=== PATIENT | female | born 1960 | race Caucasian/White ===

== ENCOUNTER 2016-05-06 17:48 | Emergency (ER) | payer OTHER ==
[~2016-05-06] VITALS: Ht 152.4 cm; Wt 99.3 kg
[~2016-05-06 17:48] MED LIST: AMLO-147 PO; BENA40TA41 PO; FLUT9.9S NASAL; IBUP-1542 PO; PSEU30TA38 PO; SIMV40TA2 PO; SITA1TAB5 PO
[2016-05-06 18:09] VITALS: Ht 152.4 cm; Wt 99.3 kg
[2016-05-06] MEDS ORDERED: KETOROLAC 30 MG INJ IM STA (20:20)
[2016-05-06] MEDS ORDERED: DIAZEPAM 2 MG TAB PO ONE (20:30)
[2016-05-06] MEDS ORDERED: TRAM50TA2 PO (21:36)
--- NOTE | 2016-05-06 21:45 | ERD ---
ER Documentation Chief Complaint Date/Time DATE: 05/06/16 TIME: 21:40 Chief Complaint Pt with CASH X 2 weeks. HPI This is a 56-year-old female that presents to the ER with multiple complaints. Over the last 2 weeks patient has had a headache which radiates down into her neck, shoulders, upper back, middle back and lower back. Patient states the pain is throbbing in quality it is also achy. Patient has tried ibuprofen for the pain which seems to help however the pain always comes back. Pain is read as 8 out of 10. Patient denies any falls or trauma. Patient does admit to having anxiety. She does feel stressed out lately. Patient denies any vision changes. She denies any fevers or chills. Denies any weaknesses. ROS 12 point review of systems was done, all negative except per HPI. Medications Home Meds Active Scripts Tramadol HCl (Tramadol HCl) 50 Mg Tablet, 50 MG PO Q4 Y for PAIN, #20 TAB Prov:GENO ARAMBULA 05/06/16 Pseudoephedrine Hcl* (Pseudoephedrine Hcl*) 30 Mg Tablet, 30 MG PO Q6 Y for CONGESTION, #30 TAB Prov:AMPARO LUCIO PA-C 12/09/15 Fluticasone Propionate (Flonase Allergy Relief) 9.9 Ml [place].susp, 1 SPRAY NASAL DAILY, #1 BOTTLE TO EACH NOSTRIL Prov:AMPARO LUCIO PA-C 12/09/15 Ibuprofen* (Motrin*) 600 Mg Tab, 600 MG PO Q6, #30 TAB Prov:AMPARO LUCIO PA-C 12/09/15 Reported Medications Benazepril Hcl* (Benazepril Hcl*) 40 Mg Tablet, 40 MG PO DAILY, #30 TAB 12/01/15 Sitagliptin Phos/Metformin HCl (Janumet 50-1,000 mg Tablet) 1 Each Tablet, 1 EACH PO BID WITH MEALS, TAB 11/15/15 Simvastatin* (Zocor*) 40 Mg Tablet, 40 MG PO QHS, #30 TAB 11/15/15 Amlodipine Besylate* (Amlodipine Besylate*) 10 Mg Tablet, 10 MG PO DAILY, #30 TAB 11/15/15 Allergies Allergies: Coded Allergies: No Known Allergy (Verified , 12/06/15) PMhx/Soc History of Surgery: Yes (hysterectomy, hemorrhoids) Anesthesia Reaction: No Hx Neurological Disorder: No Hx Respiratory Disorders: No Hx Cardiac Disorders: Yes (HTN, HYPERLIPDEMIA) Hx Psychiatric Problems: No Hx Miscellaneous Medical Probl: Yes (DM, GERD, GASTRITIS, MORBID OBESITY) Hx Alcohol Use: No Hx Substance Use: No Hx Tobacco Use: No Physical Exam Vitals Vital Signs Date Time Temp Pulse Resp B/P Pulse Ox O2 Delivery O2 Flow Rate FiO2 05/06/16 18:09 98.2 104 18 172/87 97 Physical Exam GENERAL: The patient is well developed and appropriate for usual state of health , in no apparent distress. HEENT: Atraumatic. Conjunctivae are pink. Pupils equal, round, and reactive to light. Extraocular muscles are grossly intact. Bilateral tympanic membranes are clear with no evidence of erythema, bulging or perforation. No sinus tenderness. NECK: C-spine is soft and supple. There is no cervical lymphadenopathy. Tenderness to palpation along trapezius muscle CHEST: Clear to auscultation bilaterally. There are no rales, wheezes or rhonchi. HEART: Regular rate and rhythm. No murmurs, clicks, rubs or gallops. BACK: Tender to palpation along paraspinal muscles throughout her entire back. No vertebral point tenderness. EXTREMITIES: Equal pulses bilaterally. There is no peripheral clubbing, cyanosis or edema. No focal swelling or erythema. Full range of motion. Grossly neurovascularly intact. NEURO: Alert and oriented. Cranial nerves II through XII are intact. Motor strength in all 4 extremities with 5/5 strength. Sensation grossly intact. Normal speech and gait. Negative [place]. +2 DTRs. SKIN: There is no apparent rash or petechia. The skin is warm and dry. Results 24 hrs Current Medications Medications (Trade) Dose Ordered Sig/Nila Route PRN Reason Start Time Stop Time Status Last Admin Dose Admin Ketorolac Tromethamine (Toradol) 30 mg ONCE STAT IM 05/06/16 20:20 05/06/16 20:21 DC 05/06/16 21:15 Diazepam (Valium) 2 mg ONCE ONCE PO 05/06/16 20:30 05/06/16 20:31 DC 05/06/16 21:21 Procedures/MDM Differential Diagnosis includes but is not limited to; tension headache, migraine headache, cluster headache, sinus headache, nonspecific febrile headache, trigeminal neurologia, subdural hematoma, subarachnoid bleeding, meningitis, encephalitis. Patient is neurologically intact with no focal neurological deficits. Patient was treated with Toradol here in the ER, patient felt better. At this time I do not feel patient needs any blood work or imaging of the patient's neurological exam is completely normal. Patient is experiencing pain throughout her neck shoulders and back. Likely muscular in nature. Patient is afebrile and well-appearing. Patient will be sent home with tramadol. She is to follow-up with her primary care doctor within 1-2 days. My medical decision making was shared with the patient she understands and agrees with plan. Departure Diagnosis: Primary Impression: Headache Condition: Stable Patient Instructions: Self-Care for Headaches Referrals: ANA MORENO DO (PCP) Additional Instructions: Llame al doctor MAANA y [facility] PARA DENTRO DE 1-2 HATHAWAY.Dgale a la secretaria que nosotros le instruimos hacer esta soham.Avise o llame si pitts condicin se empeora antes de la soham. Regresa aqui si peor o no mejor. GENO ARAMBULA May 06, 2016 21:45
[2016-05-06 21:53] VITALS: BP 148/86; PULSE 101; RESP 16
== END 2016-05-06 21:53 | disposition home or self-care (01) ==
LOC: FTE 17:48
DX: R51 Headache (principal); I10 Essential (primary) hypertension; E11.9 Type 2 diabetes mellitus without complications; Z79.84 Long term (current) use of oral hypoglycemic drugs
CPT/HCPCS: 96372; J1885; Z7502; Z7610

== ENCOUNTER 2016-05-23 16:29 | Emergency (ER) | payer OTHER ==
[~2016-05-23] VITALS: Wt 100.0 kg
[~2016-05-23 16:29] MED LIST changes: +TRAM50TA2 PO
[2016-05-23] MEDS ORDERED: ACETAMINOPHEN 500 MG TAB PO STA (19:15)
[2016-05-23] MEDS ORDERED: CEFTRIAXONE 1 GM/50 ML (PMX) 50 ML IVPB ONE (19:30)
[2016-05-23] MEDS ORDERED: SOD CHLORIDE 0.9% 1,000 ML IV ONE (19:30)
[2016-05-23 19:52] LABS: ADD SCAN DIFF NO
[2016-05-23 19:54] LABS: BASOPHILS % 0.2 % (0.0-2.0); EOSINOPHILS # 0.2 10^3/ul (0.0-0.5); EOSINOPHILS % 1.5 % (0.0-7.0); HEMATOCRIT 35.5 % (37.0-47.0); HEMOGLOBIN 11.9 g/dl (12.0-16.0); LYMPHOCYTES # 2.7 10^3/ul (0.8-2.9); LYMPHOCYTES % 18.2 % (15.0-51.0); MEAN CORPUSCULAR HEMOGLOBIN 27.7 pg (29.0-33.0); MEAN CORPUSCULAR HGB CONC 33.5 g/dl (32.0-37.0); MEAN CORPUSCULAR VOLUME 82.8 fl (82.0-101.0); MEAN PLATELET VOLUME 9.9 fl (7.4-10.4); MONOCYTE # 0.8 10^3/ul (0.3-0.9); MONOCYTES % 5.4 % (0.0-11.0); NEUTROPHILS % 74.3 % (39.0-77.0); PLATELET COUNT 386 10^3/UL (140-415); RED BLOOD COUNT 4.29 10^6/ul (4.20-5.40); RED CELL DISTRIBUTION WIDTH 13.8 % (11.5-14.5); WHITE BLOOD COUNT 14.9 10^3/ul (4.8-10.8)
[2016-05-23 20:05] LABS: POTASSIUM 4.3 mmol/L (3.5-5.1)
[2016-05-23 20:07] LABS: CREATININE 0.56 mg/dl (0.44-1.00)
[2016-05-23 20:08] LABS: ALBUMIN/GLOBULIN RATIO 0.93; CALCIUM 9.1 mg/dl (8.4-10.2); TOTAL PROTEIN 8.3 g/dl (6.1-8.1)
[2016-05-23 20:15] LABS: ADD UMIC YES; URINE BILIRUBIN (Dip) NEGATIVE (NEGATIVE); URINE BLOOD (Dip) TRACE (NEGATIVE); URINE COLOR LT. YELLOW (YELLOW); URINE GLUCOSE (Dip) >=1000 % (NEGATIVE); URINE KETONES (Dip) NEGATIVE (NEGATIVE); URINE LEUKOCYTE ESTERASE (Dip) 1+ (NEGATIVE); URINE NITRITE (Dip) POSITIVE (NEGATIVE); URINE TOTAL PROTEIN (Dip) NEGATIVE (NEGATIVE); URINE UROBILINOGEN (Dip) 0.2 E.U./dL (0.1-1.0)
[2016-05-23 20:44] LABS: BACTERIA,URINE MANY; SQUAMOUS EPITHELIAL CELL,UR FEW; URINE RBCS 0-2 /HPF (0)
[2016-05-23] MEDS ORDERED: BACTDS PO (21:35)
[2016-05-23] MEDS ORDERED: TYL500 PO (21:36)
[2016-05-23] MEDS ORDERED: CEPH-443 PO (21:36)
--- NOTE | 2016-05-23 21:50 | ERD ---
ER Documentation Chief Complaint Date/Time DATE: 05/23/16 TIME: 21:41 Chief Complaint FEVER AND BODY ACHE FOR THE PAST 4 DAYS. NO COUGH OR URI , NO DYSURIA HPI This is a 56-year-old female that presents to the ER with multiple abscesses on her back and buttocks. Patient states she has had fevers for the last 2 days and she has been taking ibuprofen which helps it go away. Patient denies any nausea vomiting or diarrhea. She denies any urinary frequency or dysuria. Patient has had these recurrent abscesses over the last 2 years. Patient began to feel pain to the back and the Botox 4 days ago. He states that usually they get a soft, open and discharge is expressed. However this has not happened. ROS 12 point review of systems was done, all negative except per HPI. Medications Home Meds Active Scripts Acetaminophen* (Tylenol*) 500 Mg Tab, 1000 MG PO Q8H Y for PAIN AND OR ELEVATED TEMP for 3 Days, TAB Prov:GENO ARAMBULA 05/23/16 Cephalexin* (Keflex*) 500 Mg Capsule, 500 MG PO QID for 7 Days, CAP Prov:GENO ARAMBULA 05/23/16 Sulfamethoxazole-Trimethoprim* (Bactrim* DS) 800-160 Mg Tab, 1 TAB PO BID for 7 Days, TAB Prov:GENO ARAMBULA 05/23/16 Tramadol HCl (Tramadol HCl) 50 Mg Tablet, 50 MG PO Q4 Y for PAIN, #20 TAB Prov:GENO ARAMBULA 05/06/16 Pseudoephedrine Hcl* (Pseudoephedrine Hcl*) 30 Mg Tablet, 30 MG PO Q6 Y for CONGESTION, #30 TAB Prov:AMPARO LUCIO PA-C 12/09/15 Fluticasone Propionate (Flonase Allergy Relief) 9.9 Ml [place].susp, 1 SPRAY NASAL DAILY, #1 BOTTLE TO EACH NOSTRIL Prov:AMPARO LUCIO PA-C 12/09/15 Ibuprofen* (Motrin*) 600 Mg Tab, 600 MG PO Q6, #30 TAB Prov:AMPARO LUCIO PA-C 12/09/15 Reported Medications Benazepril Hcl* (Benazepril Hcl*) 40 Mg Tablet, 40 MG PO DAILY, #30 TAB 12/01/15 Sitagliptin Phos/Metformin HCl (Janumet 50-1,000 mg Tablet) 1 Each Tablet, 1 EACH PO BID WITH MEALS, TAB 11/15/15 Simvastatin* (Zocor*) 40 Mg Tablet, 40 MG PO QHS, #30 TAB 11/15/15 Amlodipine Besylate* (Amlodipine Besylate*) 10 Mg Tablet, 10 MG PO DAILY, #30 TAB 11/15/15 Allergies Allergies: Coded Allergies: No Known Allergy (Verified , 12/06/15) PMhx/Soc History of Surgery: Yes (hysterectomy, hemorrhoids) Anesthesia Reaction: No Hx Neurological Disorder: No Hx Respiratory Disorders: No Hx Cardiac Disorders: Yes (HTN, HYPERLIPDEMIA) Hx Psychiatric Problems: No Hx Miscellaneous Medical Probl: Yes (DM, GERD, GASTRITIS, MORBID OBESITY, anxiety) Hx Alcohol Use: No Hx Substance Use: No Hx Tobacco Use: No Smoking Status: Never smoker Physical Exam Vitals Vital Signs Date Time Temp Pulse Resp B/P Pulse Ox O2 Delivery O2 Flow Rate FiO2 05/23/16 16:32 100.1 112 21 144/89 98 Physical Exam GENERAL: The patient is well developed and appropriate for usual state of health , in no apparent distress. HEENT: Atraumatic. CHEST: Clear to auscultation bilaterally. There are no rales, wheezes or rhonchi. HEART: Regular rate and rhythm. No murmurs, clicks, rubs or gallops. NEURO: Alert and oriented. SKIN: multiples abscess all over body. there is a 3cm by 4cm area of induration on the left buttock. 2cm*3cm abscess on the left lower back that is indurated. 2cm*3cm abscess on right buttock that is indurated. Result Diagram: 05/23/16194405/23/161944 Results 24 hrs Laboratory Tests Test 05/23/16 19:45 Alanine Aminotransferase (ALT/SGPT) 18IU/L Albumin 4.0g/dl Albumin/Globulin Ratio 0.93 Alkaline Phosphatase 202IU/L Anion Gap 19 Aspartate Amino Transf (AST/SGOT) 21IU/L Basophils # 0.010^3/ul Basophils % 0.2% Blood Urea Nitrogen 15mg/dl Calcium Level 9.1mg/dl Carbon Dioxide Level 25mmol/L Chloride Level 94mmol/L Creatinine 0.56mg/dl Direct Bilirubin 0.00mg/dl Eosinophils # 0.210^3/ul Eosinophils % 1.5% Globulin 4.30g/dl Glucose Level 366mg/dl Hematocrit 35.5% Hemoglobin 11.9g/dl Indirect Bilirubin 0.0mg/dl Lymphocytes # 2.710^3/ul Lymphocytes % 18.2% Mean Corpuscular Hemoglobin 27.7pg Mean Corpuscular Hemoglobin Concent 33.5g/dl Mean Corpuscular Volume 82.8fl Mean Platelet Volume 9.9fl Monocytes # 0.810^3/ul Monocytes % 5.4% Neutrophils # 11.010^3/ul Neutrophils % 74.3% Nucleated Red Blood Cells # 0.010^3/ul Nucleated Red Blood Cells % 0.0/100WBC Platelet Count 50923^3/UL Potassium Level 4.3mmol/L Red Blood Count 4.2910^6/ul Red Cell Distribution Width 13.8% Sodium Level 134mmol/L Total Bilirubin 0.0mg/dl Total Protein 8.3g/dl Urine Bacteria MANY Urine Bilirubin NEGATIVE Urine Clarity SLIGHTLY CLOUDY Urine Color LT. YELLOW Urine Glucose >=1000% Urine Hemoglobin TRACE Urine Ketones NEGATIVE Urine Leukocyte Esterase 1+ Urine Microscopic RBC 0-2/HPF Urine Microscopic WBC 5-10/HPF Urine Nitrite POSITIVE Urine Specific [place] 1.025 Urine Squamous Epithelial Cells FEW Urine Total Protein NEGATIVE Urine Urobilinogen 0.2 E.U./dL Urine pH 5.5 White Blood Count 14.910^3/ul Current Medications Medications (Trade) Dose Ordered Sig/Nila Route PRN Reason Start Time Stop Time Status Last Admin Dose Admin Ceftriaxone Sodium 50 ml @ 100 mls/hr ONCE ONCE IVPB 05/23/16 19:30 05/23/16 19:59 DC 05/23/16 19:41 Sodium Chloride (NS) 1,000 ml @ 1,000 mls/hr Q1H ONCE IV 05/23/16 19:30 05/23/16 20:29 DC 05/23/16 19:41 Acetaminophen (Tylenol Tab) 1,000 mg ONCE STAT PO 05/23/16 19:15 05/23/16 19:18 DC 05/23/16 19:41 Procedures/MDM This is a 56 y/o female that presents to the ER for multiple abscesses and fevers. Patient did have a fever here in the ER which is controlled. She was also given fluids. Patient was given IV Rocephin without any complications. I discussed this case with Dr. Jewell, and he agrees with my medical decision making. Patient does have a slight elevation in her white blood cells however this is expected as she has multiple abscesses. And is well-appearing and she is nontoxic. Patient will be sent home with Bactrim and with Keflex. She is to follow-up with her primary care doctor within 1-2 days return to ER sooner if symptoms worsen. My medical decision making was shared with the patient she understands and agrees with plan. Departure Diagnosis: Primary Impression: Abscess Condition: Stable Patient Instructions: Abscess, Antiobiotic Treatment Only Referrals: ANA MORENO DO (PCP) Additional Instructions: Llame al doctor MAANA y [facility] PARA DENTRO DE 1-2 HATHAWAY.Dgale a la secretaria que nosotros le instruimos hacer esta soham.Avise o llame si pitts condicin se empeora antes de la soham. Regresa aqui si peor o no mejor. GENO ARAMBULA May 23, 2016 21:50
[2016-05-23 21:52] VITALS: TEMP 97.9
== END 2016-05-23 21:53 | disposition home or self-care (01) ==
LOC: FTE 16:29
DX: L02.31 Cutaneous abscess of buttock (principal); L02.212 Cutaneous abscess of back [any part, except buttock and flank]; I10 Essential (primary) hypertension; E11.9 Type 2 diabetes mellitus without complications; E66.01 Morbid (severe) obesity due to excess calories; Z79.84 Long term (current) use of oral hypoglycemic drugs
CPT/HCPCS: 80053; 81001; 85025; 96374; J0696; J7030; Z7502; Z7610; 81003

== ENCOUNTER 2016-05-25 03:19 | Emergency (ER) | payer OTHER ==
[~2016-05-25] VITALS: Ht 152.4 cm; Wt 100.0 kg
[~2016-05-25 03:19] MED LIST changes: +BACTDS PO; +CEPH-443 PO; +TYL500 PO
[2016-05-25 04:26] VITALS: Ht 152.4 cm; Wt 100.0 kg
[2016-05-25] MEDS ORDERED: CEFTRIAXONE 1 GM INJ IM STA (07:19)
--- NOTE | 2016-05-25 08:05 | ERD ---
ER Documentation Chief Complaint Date/Time DATE: 05/25/16 TIME: 08:02 Chief Complaint Abscess in the buttocks Bilateral HPI Is a 56-year-old with history of diabetes type 2 female presenting to the emergency department complaining of multiple abscesses throughout body for the past 2 years. Patient was seen here 2 days ago in which she got blood work, received Keflex and Bactrim and received Rocephin in the ED. Patient never followed up with her primary care physician. She denies any fevers. She states that it has remained constant and 1 of the abscesses have got a little bigger. She states she is compliant with her medication ROS All systems reviewed and are negative except as per history of present illness. Medications Home Meds Active Scripts Acetaminophen* (Tylenol*) 500 Mg Tab, 1000 MG PO Q8H Y for PAIN AND OR ELEVATED TEMP for 3 Days, TAB Prov:GENO ARAMUBLA 05/23/16 Cephalexin* (Keflex*) 500 Mg Capsule, 500 MG PO QID for 7 Days, CAP Prov:GENO ARAMBULA 05/23/16 Sulfamethoxazole-Trimethoprim* (Bactrim* DS) 800-160 Mg Tab, 1 TAB PO BID for 7 Days, TAB Prov:GENO ARAMBULA 05/23/16 Tramadol HCl (Tramadol HCl) 50 Mg Tablet, 50 MG PO Q4 Y for PAIN, #20 TAB Prov:GENO ARAMBULA 05/06/16 Pseudoephedrine Hcl* (Pseudoephedrine Hcl*) 30 Mg Tablet, 30 MG PO Q6 Y for CONGESTION, #30 TAB Prov:AMPARO LUCIO PA-C 12/09/15 Fluticasone Propionate (Flonase Allergy Relief) 9.9 Ml [place].susp, 1 SPRAY NASAL DAILY, #1 BOTTLE TO EACH NOSTRIL Prov:AMPARO LUCIO PA-C 12/09/15 Ibuprofen* (Motrin*) 600 Mg Tab, 600 MG PO Q6, #30 TAB Prov:AMPARO LUCIO PA-C 12/09/15 Reported Medications Benazepril Hcl* (Benazepril Hcl*) 40 Mg Tablet, 40 MG PO DAILY, #30 TAB 12/01/15 Sitagliptin Phos/Metformin HCl (Janumet 50-1,000 mg Tablet) 1 Each Tablet, 1 EACH PO BID WITH MEALS, TAB 11/15/15 Simvastatin* (Zocor*) 40 Mg Tablet, 40 MG PO QHS, #30 TAB 11/15/15 Amlodipine Besylate* (Amlodipine Besylate*) 10 Mg Tablet, 10 MG PO DAILY, #30 TAB 11/15/15 Allergies Allergies: Coded Allergies: No Known Allergy (Verified , 12/06/15) PMhx/Soc History of Surgery: Yes (hysterectomy, hemorrhoids) Anesthesia Reaction: No Hx Neurological Disorder: No Hx Respiratory Disorders: No Hx Cardiac Disorders: Yes (HTN, HYPERLIPDEMIA) Hx Psychiatric Problems: No Hx Miscellaneous Medical Probl: Yes (DM, GERD, GASTRITIS, MORBID OBESITY, anxiety) Hx Alcohol Use: No Hx Substance Use: No Hx Tobacco Use: No Physical Exam Vitals Vital Signs Date Time Temp Pulse Resp B/P Pulse Ox O2 Delivery O2 Flow Rate FiO2 05/25/16 04:26 99.3 103 20 133/83 99 Physical Exam General: WD/WN, in no apparent distress, non-toxic appearing HENT: NC/AT Eyes: Conjunctiva normal Neck: Supple Pulm: Clear to auscultation, normal labored breathing; no wheezing/rales/ rhonchi heard CV: Good capillary refill GI: Non-distended, no guarding Back: No masses Ext: No clubbing, cyanosis, or edema Neuro: Moves on all fours Skin: Multiple indurated patches throughout body, no evidence of drainage Normal turgor, color, and temperature. No ulcerations or rashes noted. Psych: Normal mood Results 24 hrs Current Medications Medications (Trade) Dose Ordered Sig/Nila Route PRN Reason Start Time Stop Time Status Last Admin Dose Admin Ceftriaxone Sodium (Rocephin) 1 gm ONCE STAT IM 05/25/16 07:19 05/25/16 07:20 DC Procedures/MDM This is a 56-year-old female with a history of diabetes type 2 presenting with multiple abscesses throughout body for the past 2 years, patient was seen here couple days ago and received Rocephin in the ED and Bactrim for outpatient. Patient states that she is compliant with her medications. On examination I have examined her, there was no evidence of lymphangitis, osteomyelitis or bacteremia. I went to consult my supervising physician regarding this patient and when I return to talk to the patient she had eloped. Patient was stable throughout my encounter with her Departure Diagnosis: Primary Impression: Encounter for wound re-check Condition: REGGIE Thompson PA-C May 25, 2016 08:05
== END 2016-05-25 08:27 | disposition left against medical advice (07) ==
LOC: FTE 03:19
DX: Z48.00 Encounter for change or removal of nonsurgical wound dressing (principal); I10 Essential (primary) hypertension; E11.9 Type 2 diabetes mellitus without complications; E66.01 Morbid (severe) obesity due to excess calories; Z79.84 Long term (current) use of oral hypoglycemic drugs; Z68.41 Body mass index [BMI] 40.0-44.9, adult
CPT/HCPCS: 99281

== ENCOUNTER 2016-08-20 01:46 | Emergency (ER) | payer OTHER ==
[~2016-08-20] VITALS: Ht 152.4 cm; Wt 101.5 kg
[2016-08-20 01:52] VITALS: Ht 152.4 cm; Wt 101.5 kg
[2016-08-20] MEDS ORDERED: SOD CHLORIDE 0.9% 500 ML IV STA (02:25)
[2016-08-20 03:40] LABS: ADD SCAN DIFF NO
[2016-08-20 04:04] LABS: BASOPHILS % 0.3 % (0.0-2.0); EOSINOPHILS # 0.2 10^3/ul (0.0-0.5); EOSINOPHILS % 2.5 % (0.0-7.0); HEMATOCRIT 36.3 % (37.0-47.0); HEMOGLOBIN 12.1 g/dl (12.0-16.0); LYMPHOCYTES # 1.9 10^3/ul (0.8-2.9); LYMPHOCYTES % 19.7 % (15.0-51.0); MEAN CORPUSCULAR HEMOGLOBIN 28.2 pg (29.0-33.0); MEAN CORPUSCULAR HGB CONC 33.3 g/dl (32.0-37.0); MEAN CORPUSCULAR VOLUME 84.6 fl (82.0-101.0); MEAN PLATELET VOLUME 9.8 fl (7.4-10.4); MONOCYTE # 0.6 10^3/ul (0.3-0.9); MONOCYTES % 5.7 % (0.0-11.0); NEUTROPHILS % 71.2 % (39.0-77.0); PLATELET COUNT 361 10^3/UL (140-415); RED BLOOD COUNT 4.29 10^6/ul (4.20-5.40); WHITE BLOOD COUNT 9.8 10^3/ul (4.8-10.8)
[2016-08-20 04:06] LABS: ANION GAP 12 (8-16); BLOOD UREA NITROGEN 14 mg/dl (7-20); CALCIUM 9.1 mg/dl (8.4-10.2); CARBON DIOXIDE 28 mmol/L (21-31); CHLORIDE 101 mmol/L (97-110); CREATININE 0.42 mg/dl (0.44-1.00); GLUCOSE 262 mg/dl (70-220); POTASSIUM 3.9 mmol/L (3.5-5.1); SODIUM 137 mmol/L (135-144)
[2016-08-20 04:21] LABS: TROPONIN-I < 0.012 ng/ml (0.00-0.12)
--- NOTE | 2016-08-20 05:00 | RADRPT ---
PROCEDURE: CHEST - 1 VIEW CLINICAL INDICATION: 56-year-old female with syncope. TECHNIQUE: A single frontal AP upright portable view of the chest was performed. The images were reviewed on a PACS workstation. COMPARISON: None. FINDINGS: The cardiomediastinal silhouette is within normal limits. The thoracic aortic arch is calcified. T here is no evidence for an infiltrate. There is no evidence for congestive heart failure. There is no evidence for pneumothorax. The osseous structures are intact. IMPRESSION: 1. Calcified thoracic aortic arch. 2. No evidence for active cardiopulmonary disease. .Darrion Gaviria MD, MD Date Time Electronically viewed and signed by .Darrion Gaviria MD, on 08/20/2016 05:00 .Radha/
--- NOTE | 2016-08-20 06:00 | ERD ---
ER Documentation Chief Complaint Date/Time DATE: 08/20/16 TIME: 05:59 Chief Complaint FEVER. BURNING RASH ON LT LOWER FLANK R/O SHINGLES HPI 56 year female burning rash on left lower flank. She has been there for 2-3 days. No nausea vomiting or chills. No other current complaints. ROS All systems reviewed and are negative except as per history of present illness. Medications Home Meds Active Scripts Acetaminophen* (Tylenol*) 500 Mg Tab, 1000 MG PO Q8H Y for PAIN AND OR ELEVATED TEMP for 3 Days, TAB Prov:GENO ARAMBULA 05/23/16 Cephalexin* (Keflex*) 500 Mg Capsule, 500 MG PO QID for 7 Days, CAP Prov:GENO ARAMBULA 05/23/16 Sulfamethoxazole-Trimethoprim* (Bactrim* DS) 800-160 Mg Tab, 1 TAB PO BID for 7 Days, TAB Prov:GENO ARAMBULA 05/23/16 Tramadol HCl (Tramadol HCl) 50 Mg Tablet, 50 MG PO Q4 Y for PAIN, #20 TAB Prov:GENO ARAMBULA 05/06/16 Pseudoephedrine Hcl* (Pseudoephedrine Hcl*) 30 Mg Tablet, 30 MG PO Q6 Y for CONGESTION, #30 TAB Prov:AMPARO LUCIO PA-C 12/09/15 Fluticasone Propionate (Flonase Allergy Relief) 9.9 Ml [place].susp, 1 SPRAY NASAL DAILY, #1 BOTTLE TO EACH NOSTRIL Prov:AMPARO LUCIO PA-C 12/09/15 Ibuprofen* (Motrin*) 600 Mg Tab, 600 MG PO Q6, #30 TAB Prov:AMPARO LUCIO PA-C 12/09/15 Reported Medications Benazepril Hcl* (Benazepril Hcl*) 40 Mg Tablet, 40 MG PO DAILY, #30 TAB 12/01/15 Sitagliptin Phos/Metformin HCl (Janumet 50-1,000 mg Tablet) 1 Each Tablet, 1 EACH PO BID WITH MEALS, TAB 11/15/15 Simvastatin* (Zocor*) 40 Mg Tablet, 40 MG PO QHS, #30 TAB 11/15/15 Amlodipine Besylate* (Amlodipine Besylate*) 10 Mg Tablet, 10 MG PO DAILY, #30 TAB 11/15/15 Allergies Allergies: Coded Allergies: No Known Allergy (Verified , 12/06/15) PMhx/Soc History of Surgery: Yes (hysterectomy, hemorrhoids) Anesthesia Reaction: No Hx Neurological Disorder: No Hx Respiratory Disorders: No Hx Cardiac Disorders: Yes (HTN, HYPERLIPDEMIA) Hx Psychiatric Problems: No Hx Miscellaneous Medical Probl: Yes (DM, GERD, GASTRITIS, MORBID OBESITY, anxiety) Hx Alcohol Use: No Hx Substance Use: No Hx Tobacco Use: No Physical Exam Vitals Vital Signs Date Time Temp Pulse Resp B/P Pulse Ox O2 Delivery O2 Flow Rate FiO2 08/20/16 01:52 98.8 88 20 135/83 97 Physical Exam Const: [] Head: Atraumatic Eyes: Normal Conjunctiva ENT: Normal External Ears, Nose and Mouth. Neck: Full range of motion..~ No meningismus. Resp: Clear to auscultation bilaterally Cardio: Regular rate and rhythm, no murmurs Abd: Soft, non tender, non distended. Normal bowel sounds Skin: Vesicular rash on flank. Different stages of healing. Back: No midline or flank tenderness Ext: No cyanosis, or edema Neur: Awake and alert Psych: Normal Mood and Affect Result Diagram: 08/20/16 0333 08/20/16 0333 Results 24 hrs Laboratory Tests Test 08/20/16 03:33 08/20/16 03:41 White Blood Count 9.810^3/ul Red Blood Count 4.2910^6/ul Hemoglobin 12.1g/dl Hematocrit 36.3% Mean Corpuscular Volume 84.6fl Mean Corpuscular Hemoglobin 28.2pg Mean Corpuscular Hemoglobin Concent 33.3g/dl Red Cell Distribution Width 13.0% Platelet Count 98115^3/UL Mean Platelet Volume 9.8fl Neutrophils % 71.2% Lymphocytes % 19.7% Monocytes % 5.7% Eosinophils % 2.5% Basophils % 0.3% Nucleated Red Blood Cells % 0.0/100WBC Neutrophils # 7.010^3/ul Lymphocytes # 1.910^3/ul Monocytes # 0.610^3/ul Eosinophils # 0.210^3/ul Basophils # 0.010^3/ul Nucleated Red Blood Cells # 0.010^3/ul Sodium Level 137mmol/L Potassium Level 3.9mmol/L Chloride Level 101mmol/L Carbon Dioxide Level 28mmol/L Anion Gap 12 Blood Urea Nitrogen 14mg/dl Creatinine 0.42mg/dl Glucose Level 262mg/dl Calcium Level 9.1mg/dl Troponin I < 0.012ng/ml Bedside Glucose 247mg/dL Current Medications Medications (Trade) Dose Ordered Sig/Nila Route PRN Reason Start Time Stop Time Status Last Admin Dose Admin Sodium Chloride (NS) 500 ml @ 500 mls/hr Q1H STAT IV 08/20/16 02:25 08/20/16 03:24 DC 08/20/16 03:48 Departure Diagnosis: Primary Impression: Shingles Herpes zoster complications: without complications Qualified Code: B02.9 - Herpes zoster without complication Condition: Stable DOMINICK ARANGO Aug 20, 2016 06:00
[2016-08-20] MEDS ORDERED: ACYC800T57 PO (06:01)
[2016-08-20 06:51] VITALS: BP 119/64; PULSE 80; RESP 16; TEMP 98.6
== END 2016-08-20 07:15 | disposition home or self-care (01) ==
LOC: E/R 01:46
DX: B02.9 Zoster without complications (principal); I10 Essential (primary) hypertension; E11.9 Type 2 diabetes mellitus without complications; E66.01 Morbid (severe) obesity due to excess calories; Z68.41 Body mass index [BMI] 40.0-44.9, adult; Z79.84 Long term (current) use of oral hypoglycemic drugs
CPT/HCPCS: 71010; 80048; 82962; 84484; 85025; 93005; J7040; 36415

== ENCOUNTER 2016-11-09 15:05 | Emergency (ER) | payer OTHER ==
[~2016-11-09] VITALS: Ht 162.6 cm; Wt 97.5 kg
[~2016-11-09 15:05] MED LIST changes: +ACYC800T57 PO
[2016-11-09 15:11] VITALS: Ht 162.6 cm; Wt 97.5 kg
[2016-11-09] MEDS ORDERED: CEPH-443 PO (17:29)
[2016-11-09] MEDS ORDERED: SULF1TAB31 PO (17:29)
--- NOTE | 2016-11-09 17:46 | ERA ---
ER Documentation Chief Complaint Date/Time DATE: 11/09/16 TIME: 17:34 Chief Complaint patient complains of an abscess to the anal area HPI 56-year-old female with a history of hypertension diabetes mellitus presents with a chief complaint of skin rash. Patient had a similar rash 2 years ago. Patient states that the lesions pop up every once in a while and take weeks to resolve. Patient states that she has had a fever for the past 4 days. Has not taken any medications to relieve the symptoms. Has been prescribed multiple medications that she cannot recall the names of. Has been seen by ER doctors here, PCP, mds coordinator who sent her to another mds coordinator as well and did not receive diagnosis. Patient states that they are painful. Denies any discharge or foul smell. No new or changing medications. No recent travel. He denies recent antibiotic use, symptomatic close contacts, pruritus, skin opening, history of insect bite, or allergies. . ROS All systems reviewed and are negative except as per history of present illness. Medications Home Meds Active Scripts Sulfamethoxazole/Trimethoprim* (Bactrim Ds* Tablet) 1 Each Tablet, 1 TAB PO BID , #14 TAB Prov:REGI OH PA-C 11/09/16 Cephalexin* (Keflex*) 500 Mg Capsule, 500 MG PO QID for 7 Days, CAP Prov:REGI OH PA-C 11/09/16 Acyclovir* (Zovirax*) 800 Mg Tablet, 800 MG PO 5 TIMES DAILY for 7 Days, TAB Prov:DOMINICK ARANGO 08/20/16 Acetaminophen* (Tylenol*) 500 Mg Tab, 1000 MG PO Q8H Y for PAIN AND OR ELEVATED TEMP for 3 Days, TAB Prov:GENO ARAMBULA 05/23/16 Cephalexin* (Keflex*) 500 Mg Capsule, 500 MG PO QID for 7 Days, CAP Prov:GENO ARAMBULA 05/23/16 Sulfamethoxazole-Trimethoprim* (Bactrim* DS) 800-160 Mg Tab, 1 TAB PO BID for 7 Days, TAB Prov:GENO ARAMBULA C 05/23/16 Tramadol HCl (Tramadol HCl) 50 Mg Tablet, 50 MG PO Q4 Y for PAIN, #20 TAB Prov:GENO ARAMBULA 05/06/16 Pseudoephedrine Hcl* (Pseudoephedrine Hcl*) 30 Mg Tablet, 30 MG PO Q6 Y for CONGESTION, #30 TAB Prov:AMPARO LUCIO PA-C 12/09/15 Fluticasone Propionate (Flonase Allergy Relief) 9.9 Ml [place].susp, 1 SPRAY NASAL DAILY, #1 BOTTLE TO EACH NOSTRIL Prov:AMPARO LUCIO PA-C 12/09/15 Ibuprofen* (Motrin*) 600 Mg Tab, 600 MG PO Q6, #30 TAB Prov:AMPARO LUCIO PA-C 12/09/15 Reported Medications Benazepril Hcl* (Benazepril Hcl*) 40 Mg Tablet, 40 MG PO DAILY, #30 TAB 12/01/15 Sitagliptin Phos/Metformin HCl (Janumet 50-1,000 mg Tablet) 1 Each Tablet, 1 EACH PO BID WITH MEALS, TAB 11/15/15 Simvastatin* (Zocor*) 40 Mg Tablet, 40 MG PO QHS, #30 TAB 11/15/15 Amlodipine Besylate* (Amlodipine Besylate*) 10 Mg Tablet, 10 MG PO DAILY, #30 TAB 11/15/15 Allergies Allergies: Coded Allergies: No Known Allergy (Verified , 12/06/15) PMhx/Soc History of Surgery: Yes (hysterectomy, hemorrhoids) Anesthesia Reaction: No Hx Neurological Disorder: No Hx Respiratory Disorders: No Hx Cardiac Disorders: Yes (HTN, HYPERLIPDEMIA) Hx Psychiatric Problems: No Hx Miscellaneous Medical Probl: Yes (DM, GERD, GASTRITIS, MORBID OBESITY, anxiety) Hx Alcohol Use: No Hx Substance Use: No Hx Tobacco Use: No Smoking Status: Never smoker Physical Exam Vitals Vital Signs Date Time Temp Pulse Resp B/P Pulse Ox O2 Delivery O2 Flow Rate FiO2 11/09/16 15:11 97.8 98 20 150/70 95 Physical Exam Const: Healthy-appearing. Well-nourished. Well-developed. No acute distress. Skin: Multiple nonelevated, tender, erythematous macules with centralized vesicles located on the lower abdomen lower back and superior aspect of the lower extremities bilaterally. Macules have irregular with non- distinct/ill-defined borders; no fluctuance. Brown macules that are nontender most likely representing healed wounds from previous lesions. No discharge noted. No jaundice. Ext: No cyanosis or edema noted. Head: Normocephalic. As noted in skin exam. Eyes: Non-injected; No scleral erythema, or discharge. EOMI and CATY bilaterally. Ears: Normal External Ears, EACs clear, TM normal bilaterally without erythema. Nose: Normal nose without discharge, septal deviation, or sinus tenderness. Oral: No oral edema visualized. Mucous membranes moist and pink. Neck: No cervical lymphadenopathy, or masses. Trachea midline. Supple ~ No meningismus. Pulm: Good air movement in upper and lower respiratory tracts. No dyspnea, stridor, tripoding or drooling. Clear to auscultation bilaterally. Cardio: Regular rate and rhythm. No JVD grossly observed. Radial and posterior tibial pulses 2+ bilaterally. No cyanosis. Capillary refill less than 2 seconds. Abd: Soft, non tender, non distended. No guarding. Normal bowel sounds. MS: Normal motor strength, normal tone with gross examination. Back: No midline or flank tenderness. Neur: Neurovascularly intact bilaterally. Awake, alert and oriented x3. Procedures/MDM 56-year-old female presents with a chief complaint of rash as described in history and physical examination. Patient has had a rash 2 years ago. Has seen multiple specialists without diagnosis. At this time I have little suspicion for serious bacterial infection, EM, TEN, SJS, TSS, pemphigus vulgaris , lymphangitis or molluscum contagiosum. Most likely diagnosis is cellulitis versus rash of unknown etiology. I have presented this case to my attending Dr. Quintanilla who has agreed the most appropriate who has suggested that the patient received Keflex and Bactrim be treated outpatient with close follow-up with dermatology. I have spoke with the patient regarding their condition and future management. The cook helper meat was the registration lady. They have verbally responded that they understand their status and treatment plan. The patients vitals are stable, and their current condition is appropriate for discharge. The patient will be given discharge instructions with return precautions. Departure Diagnosis: Primary Impression: Skin abnormality Condition: Stable Referrals: BARRON ALMARAZ MD,EUGENIO LUCIO,KWADWO MCNULTY,REGI GUTIERREZ,ASHLY HERNANDEZ,ANAHI SOL Additional Instructions: Follow up with mds coordinator in the next 1-3 days. Return the the emergency department immediately if symptoms worsen or change. If you have any questions regarding medications, ask your pharmacist or us before you leave. If any adverse reactions occur while taking your medications, discontinue the treatment and return to the emergency department immediately. Take your medications as directed, and complete the entire course of treatment. REGI OH PA-C Nov 09, 2016 17:44
== END 2016-11-09 17:51 | disposition home or self-care (01) ==
LOC: FTE 15:05
DX: L98.8 Other specified disorders of the skin and subcutaneous tissue (principal); I10 Essential (primary) hypertension; E11.9 Type 2 diabetes mellitus without complications; E66.01 Morbid (severe) obesity due to excess calories; Z68.36 Body mass index [BMI] 36.0-36.9, adult; Z79.84 Long term (current) use of oral hypoglycemic drugs
CPT/HCPCS: 99284

== ENCOUNTER 2017-08-23 14:13 | Emergency (ER) | END 2017-08-23 16:28 | disposition home or self-care (01) ==

== ENCOUNTER 2017-10-26 21:39 | Emergency (ER) | END 2017-10-26 22:58 | disposition home or self-care (01) ==

== ENCOUNTER 2017-10-27 07:01 | Emergency (ER) | END 2017-10-27 09:30 | disposition home or self-care (01) ==

== ENCOUNTER 2017-11-22 16:25 | Emergency (ER) | END 2017-11-22 19:48 | disposition home or self-care (01) ==

== ENCOUNTER 2018-09-22 07:31 | Day surgery (SDC) | payer MEDICARE, OTHER ==
[~2018-09-22] VITALS: Ht 154.9 cm; Wt 114.7 kg
[~2018-09-22 07:31] MED LIST changes: +ACYC800T5 PO; -ACYC800T57 PO; -BENA40TA41 PO; +BENA40TA56 PO; +IBUP-1561 PO; +LORA1TAB PO; +MECL12.574 PO; +SULF1TAB31 PO
[2018-09-22] MEDS ORDERED: INSULIN (08:27)
[2018-09-22] MEDS ORDERED: METFORMIN (08:27)
[2018-09-22 08:28] VITALS: Ht 154.9 cm; Wt 114.7 kg
[2018-09-22 09:48] VITALS: BP 134/76; PULSE 85; RESP 10
--- NOTE | 2018-09-22 09:48 | PREAC ---
Date/Time of Note Date/Time of Note DATE: 09/22/18 TIME: 09:48 Anesthesia Eval and Record Evaluation Time Pre-Procedure Interview DATE: 09/22/18 TIME: 09:48 Age 58 Sex female NPO: 8 hrs Preoperative diagnosis RECTAL BLEEDING Planned procedure COLONOSCOPY Past Medical History Past Medical History: Includes Cardio: HTN Endo: Diabetes GI: Morbid obesity Surgery & Anesthesia Issues No known issue Meds Anticoagulation: No Beta John within 24 hr: No Reason Beta John not given: Pt. not on B-John Active Scripts Ibuprofen* (Motrin*) 400 Mg Tab, 400 MG PO Q6, #20 TAB Prov:SHAGUFTA CONTRERAS MD 08/23/17 Reported Medications [Metformin] No Conflict Check 09/22/18 [Insulin X2] No Conflict Check 09/22/18 Benazepril Hcl* (Benazepril Hcl*) 40 Mg Tablet, 40 MG PO DAILY, #30 TAB 12/01/15 Amlodipine Besylate* (Amlodipine Besylate*) 10 Mg Tablet, 10 MG PO DAILY, #30 TAB 11/15/15 Discontinued Reported Medications Sitagliptin Phos/Metformin HCl (Janumet 50-1,000 mg Tablet) 1 Each Tablet, 1 EACH PO BID WITH MEALS, TAB 11/15/15 Simvastatin* (Zocor*) 40 Mg Tablet, 40 MG PO QHS, #30 TAB 11/15/15 Discontinued Scripts Cephalexin* (Keflex*) 500 Mg Capsule, 500 MG PO BID for 7 Days, CAP Prov:GENO ARAMBULA 11/23/17 Meclizine Hcl* (Antivert*) 12.5 Mg Tab, 12.5 MG PO Q6H PRN for DIZZINESS, #20 TAB Prov:GENO ARAMBULA C 11/22/17 Lorazepam* (Lorazepam*) 1 Mg Tablet, 0.05 MG PO Q8, #10 TAB Prov:ARABELLA,KANDI 10/26/17 Tramadol HCl (Tramadol HCl) 50 Mg Tablet, 50 MG PO Q4 PRN for PAIN, #20 TAB Prov:SHAGUFTA CONTRERAS MD 08/23/17 Sulfamethoxazole/Trimethoprim* (Bactrim Ds* Tablet) 1 Each Tablet, 1 TAB PO BID, #14 TAB Prov:REGI OH PA-C 11/09/16 Cephalexin* (Keflex*) 500 Mg Capsule, 500 MG PO QID for 7 Days, CAP Prov:REGI OH PA-C 11/09/16 Acyclovir* (Zovirax*) 800 Mg Tablet, 800 MG PO 5 TIMES DAILY for 7 Days, TAB Prov:DOMINICK ARANGOMichell 08/20/16 Acetaminophen* (Tylenol*) 500 Mg Tab, 1000 MG PO Q8H PRN for PAIN AND OR ELEVATED TEMP for 3 Days, TAB Prov:GENO ARAMBULA 05/23/16 Cephalexin* (Keflex*) 500 Mg Capsule, 500 MG PO QID for 7 Days, CAP Prov:TYESHAGENO MCBRIDE 05/23/16 Sulfamethoxazole-Trimethoprim* (Bactrim* DS) 800-160 Mg Tab, 1 TAB PO BID for 7 Days, TAB Prov:GENO ARAMBULA 05/23/16 Tramadol HCl (Tramadol HCl) 50 Mg Tablet, 50 MG PO Q4 PRN for PAIN, #20 TAB Prov:GENO ARAMBULA 05/06/16 Pseudoephedrine Hcl* (Pseudoephedrine Hcl*) 30 Mg Tablet, 30 MG PO Q6 PRN for CONGESTION, #30 TAB Prov:AMPARO LUCIO PA-C 12/09/15 Fluticasone Propionate (Flonase Allergy Relief) 9.9 Ml [place].susp, 1 SPRAY NASAL DAILY, #1 BOTTLE TO EACH NOSTRIL Prov:AMPARO LUCIO PA-C 12/09/15 Ibuprofen* (Motrin*) 600 Mg Tab, 600 MG PO Q6, #30 TAB Prov:AMPARO LUCIO PA-C 12/09/15 Meds reviewed: Yes Allergies Coded Allergies: No Known Allergy (Verified , 09/22/18) Allergies Reviewed: Yes Labs/Studies Labs Reviewed: Reviewed by anesthesiologist test: N/A Pre-procedure Exam Airway: Adequate mouth opening, Adequate thyromental dist Mallampati: Mallampati II Teeth: Normal Lung: Normal Heart: Normal ASA Physical Status ASA physical status: 3 Emergency: None Planned Anesthetic General/MAC: MAC Planned Pain Management Parenteral pain med Pre-operative Attestations Prior to commencing anesthesia and surgery, the patient was re-evaluated, there was verification of: *The patient's identity *The results of appropriate recent lab work and preoperative vital signs *The above evaluation not changing prior to induction *Anesthetic plan, risk benefits, alternative and complications discussed with patient/family; questions answered; patient/family understands, accepts and wishes to proceed. Tan Walters M.D. Sep 22, 2018 09:48
[2018-09-22] MEDS ORDERED: PROPOFOL 40 ML ONE (09:49)
[2018-09-22] MEDS ORDERED: LIDOCAINE 100 MG SYRINGE ONE (09:49)
--- NOTE | 2018-09-22 10:28 | PAC ---
Date/Time of Note Date/Time of Note DATE: 09/22/18 TIME: 10:27 Post-Anesthesia Notes Post-Anesthesia Note Last documented vital signs HR 77 RR 14 BP 137/89 T 98.2 Activity: WNL Respiratory function: WNL Cardiovascular function: WNL Mental status: Baseline Pain reasonably controlled: Yes Hydration appropriate: Yes Nausea/Vomiting absent: Yes Tan Walters M.D. Sep 22, 2018 10:28
[2018-09-22 10:52] VITALS: BP 132/74; PULSE 88
[2018-09-22 11:30] VITALS: BP 107/65; PULSE 72; RESP 18
[2018-09-24] MEDS ORDERED: LANT3I SC (22:45)
[2018-09-24] MEDS ORDERED: ALPR0.5T6 PO (22:45)
[2018-09-24] MEDS ORDERED: NOVO3I SC (22:45)
[2018-09-24] MEDS ORDERED: GLYB5TAB3 PO (22:45)
[2018-09-24] MEDS ORDERED: NAPR-688 PO (22:45)
== END 2018-09-22 11:43 | disposition home or self-care (01) ==
LOC: GIL 07:31
PROVIDERS: ATTEND Internal Medicine Gastroenterology
DX: K62.1 Rectal polyp (principal); I10 Essential (primary) hypertension; E11.9 Type 2 diabetes mellitus without complications; Z79.84 Long term (current) use of oral hypoglycemic drugs; Z79.4 Long term (current) use of insulin
CPT/HCPCS: 45380; 82962; 88305; J2001

== ENCOUNTER 2018-11-11 19:49 | Emergency (ER) | payer MEDICARE, OTHER ==
[~2018-11-11] VITALS: Ht 152.4 cm; Wt 108.1 kg
[~2018-11-11 19:49] MED LIST changes: -ACYC800T5 PO; +ALPR0.5T6 PO; -BACTDS PO; +CEPH250C PO; +DOXA4TAB2 PO; +FER325 PO; -FLUT9.9S NASAL; +FURO40TA4 PO; +GLYB5TAB3 PO; -IBUP-1542 PO; +LANT3I SC; -LORA1TAB PO; -MECL12.574 PO; +METO-335 PO; +NOVO3I SC; +POTA10TA37 PO; -PSEU30TA38 PO; -SIMV40TA2 PO; -TRAM50TA2 PO; -TYL500 PO
[2018-11-11 19:58] VITALS: Ht 152.4 cm; Wt 108.1 kg
[2018-11-11] MEDS ORDERED: PIPER-TAZO 3.375 GM IV (PMX) 100 ML IVPB STA (22:45)
[2018-11-11] MEDS ORDERED: SODIUM CHLORIDE 0.9% 1L BAG IV* STA (22:45)
[2018-11-11] MEDS ORDERED: VANCOMYCIN 1 GM (PMX) 250 ML IVPB STA (22:45)
[2018-11-12 02:13] VITALS: BP 112/78; PULSE 76; RESP 16
== END 2018-11-12 02:19 | disposition home or self-care (01) ==
LOC: E/R 19:49
DX: L03.115 Cellulitis of right lower limb (principal); I10 Essential (primary) hypertension; E11.9 Type 2 diabetes mellitus without complications; R50.9 Fever, unspecified; Z79.4 Long term (current) use of insulin
CPT/HCPCS: 71045; 80053; 81001; 83605; 85025; 85610; 85730; 87040; 87086; 93005; 96374; 96375; 99285; J2543; J3370; J7030

== ENCOUNTER 2018-12-05 18:43 | Emergency (ER) | payer MEDICARE, OTHER ==
[~2018-12-05] VITALS: Wt 112.1 kg
[~2018-12-05 18:43] MED LIST changes: +FURO-110 PO; +INSU300I SQ; -POTA10TA37 PO
[2018-12-05] MEDS ORDERED: FUROSEMIDE 40 MG INJ IV ONE (20:00)
[2018-12-05 20:50] VITALS: BP 157/82; PULSE 82; RESP 18
== END 2018-12-05 20:50 | disposition home or self-care (01) ==
LOC: E/R 18:43
DX: I87.2 Venous insufficiency (chronic) (peripheral) (principal); I10 Essential (primary) hypertension; E11.9 Type 2 diabetes mellitus without complications; E66.9 Obesity, unspecified; Z79.4 Long term (current) use of insulin
CPT/HCPCS: 36415; 71045; 80053; 83690; 83880; 84484; 85025; 99285; J1940; 93005